=== PATIENT | female | born 1965 | race Caucasian/White ===

== ENCOUNTER → 2020-09-22 | Outpatient (CLI) | payer OTHER ==
[~2020-09-22] MED LIST: LEXAPRO10 MG PO
[2020-09-22 10:13] LABS: HEMOGLOBIN 14.1 gm/dl (12.3-15.3); RED BLOOD COUNT 4.39 M/UL (4.00-5.10)
[2020-09-22 10:26] LABS: BUN/CREATININE RATIO 23 (0-10)
== END ==
LOC: LAB 08:54
PROVIDERS: Internal Medicine Nephrology
DX: Z48.22 Encounter for aftercare following kidney transplant (principal); D63.1 Anemia in chronic kidney disease; N18.6 End stage renal disease; N20.0 Calculus of kidney; E83.59 Other disorders of calcium metabolism; R39.89 Other symptoms and signs involving the genitourinary system; Z86.79 Personal history of other diseases of the circulatory system; Z98.890 Other specified postprocedural states; Z90.710 Acquired absence of both cervix and uterus
CPT/HCPCS: 36415; 80069; 83735; 85025

== ENCOUNTER → 2021-01-27 | Outpatient (CLI) | payer OTHER ==
[2021-01-27 11:00] LABS: HEMOGLOBIN 13.9 gm/dl (12.3-15.3); RED BLOOD COUNT 4.36 M/UL (4.00-5.10); WHITE BLOOD COUNT 8.4 K/UL (4.5-11.0)
[2021-01-27 11:27] LABS: BUN/CREATININE RATIO 20 (0-10)
== END ==
LOC: LAB 09:24
PROVIDERS: Internal Medicine
DX: Z48.22 Encounter for aftercare following kidney transplant (principal); Z79.899 Other long term (current) drug therapy
CPT/HCPCS: 36415; 80069; 83735; 85025; 87077; 87086; 87186

== ENCOUNTER 2021-06-20 12:35 | Emergency (ER) | payer OTHER ==
[2021-06-20 17:26] LABS: HEMOGLOBIN 15.7 gm/dl (12.3-15.3); RED BLOOD COUNT 4.92 M/UL (4.00-5.10); WHITE BLOOD COUNT 8.9 K/UL (4.5-11.0)
[2021-06-20 17:44] LABS: BUN/CREATININE RATIO 14 (0-10)
== END 2021-06-20 20:20 | disposition home or self-care (01) ==
LOC: ER1 12:35
PROVIDERS: Emergency Medicine
DX: U07.1 COVID-19 (principal); I10 Essential (primary) hypertension; Z23 Encounter for immunization; Z94.0 Kidney transplant status; Z87.01 Personal history of pneumonia (recurrent)
CPT/HCPCS: 71045; 80053; 85025; 93005; 99284; M0245

== ENCOUNTER → 2021-12-03 | Outpatient (CLI) | payer OTHER, MEDICARE ==
[2021-12-03 12:39] LABS: BUN/CREATININE RATIO 20 (0-10)
== END ==
LOC: LAB 11:51
PROVIDERS: Internal Medicine
DX: Z48.22 Encounter for aftercare following kidney transplant (principal); Z94.0 Kidney transplant status
CPT/HCPCS: 36415; 80069; 80197

== ENCOUNTER → 2022-03-22 | Outpatient (CLI) | payer OTHER ==
[2022-03-22 12:00] LABS: HEMOGLOBIN 14.5 gm/dl (12.3-15.3); RED BLOOD COUNT 4.57 M/UL (4.00-5.10); WHITE BLOOD COUNT 7.4 K/UL (4.5-11.0)
[2022-03-22 12:26] LABS: BUN/CREATININE RATIO 29 (0-10)
== END ==
LOC: LAB 11:27
PROVIDERS: Internal Medicine
DX: Z48.22 Encounter for aftercare following kidney transplant (principal); Z94.0 Kidney transplant status; Z79.899 Other long term (current) drug therapy
CPT/HCPCS: 36415; 80069; 81001; 83735; 85025